=== PATIENT | female | born 1960 | race African-American/Black ===

== ENCOUNTER 2020-01-15 17:05 | Emergency (ER) | payer SELFPAY ==
[~2020-01-15] VITALS: Ht 162.6 cm; Wt 77.0 kg
[2020-01-15] MEDS ORDERED: DICYCLOMINE 10 MG/5 ML ORAL SYR PO STA (17:49)
[2020-01-15] MEDS ORDERED: MAGNESIUM/ALUMINUM HYDROXIDE/SIMETHICONE 30ML UDC PO STA (17:49)
[2020-01-15 18:10] LABS: CLARITY URINE CLEAR (CLEAR); COLOR URINE YELLOW (YELLOW); KETONES URINE NEGATIVE (NEGATIVE); LEUKOCYTE ESTERASE URINE NEGATIVE (NEGATIVE); NITRITE URINE NEGATIVE (NEGATIVE); OCCULT BLOOD URINE NEGATIVE (NEGATIVE); PROTEIN URINE NEGATIVE (NEGATIVE); SPECIFIC GRAVITY URINE 1.004 (1.005-1.030); UROBILINOGEN URINE 0.2 E.U./dL (0.2-1.0)
[2020-01-15 18:24] LABS: BASOPHILS % 0.7 % (0.0-2.0); HEMATOCRIT. 39.3 % (36.0-48.0); HEMOGLOBIN. 13.6 g/dL (12.0-16.0); LYMPHOCYTES % 67.4 % (20.0-50.0); MEAN CORPUSCULAR HEMOGLOBIN 29.6 pg (28.0-32.0); MEAN CORPUSCULAR VOLUME 85.5 fL (81.0-99.0); MEAN PLATELET VOLUME 9.3 fl (7.4-10.4); MONOCYTES % 5.2 % (2.0-8.0); NEUTROPHILS % 24.7 % (40.0-76.0); PLATELET 179 x1000/uL (130-400); RED BLOOD CELL COUNT 4.59 mill/uL (4.2-5.4)
[2020-01-15 18:27] LABS: CHLORIDE 106 mEq/L (98-107)
[2020-01-15 19:53] VITALS: BP 119/83
== END 2020-01-15 19:55 | disposition home or self-care (01) ==
LOC: ER 17:05
DX: R10.32 Left lower quadrant pain (principal); E78.00 Pure hypercholesterolemia, unspecified; Z90.710 Acquired absence of both cervix and uterus; Z98.890 Other specified postprocedural states
CPT/HCPCS: 36415; 74176; 80053; 81003; 81025; 85025; 93005; 99285

== ENCOUNTER 2025-03-05 09:43 | Emergency (ER) | payer MEDICAID ==
[~2025-03-05] VITALS: Ht 162.6 cm; Wt 69.0 kg
[2025-03-05 09:46] VITALS: TEMP 36.9; O2SAT 100
[2025-03-05] MEDS: ACETAMINOPHEN 325MG TABLET PO ONE (10:19)
[2025-03-05 11:21] VITALS: BP 132/66; PULSE 56; RESP 18; O2SAT 100
== END 2025-03-05 11:21 | disposition home or self-care (01) ==
LOC: ER 09:43
DX: S92.331A Displaced fracture of third metatarsal bone, right foot, initial encounter for closed fracture (principal); S92.341A Displaced fracture of fourth metatarsal bone, right foot, initial encounter for closed fracture; I10 Essential (primary) hypertension; E78.00 Pure hypercholesterolemia, unspecified; Z90.710 Acquired absence of both cervix and uterus; X58.XXXA Exposure to other specified factors, initial encounter; Y93.89 Activity, other specified; Y92.89 Other specified places as the place of occurrence of the external cause; Y99.8 Other external cause status
CPT/HCPCS: 73630; 99283